=== PATIENT | female | born 1985 | race African-American/Black ===

== ENCOUNTER 2019-01-20 09:25 | Inpatient (IN) | payer OTHER ==
[2019-01-19 12:13] LABS: APPEARANCE,URINE CLEAR; BILIRUBIN,URINE NEGATIVE (NEGATIVE); COLOR,URINE YELLOW; GLUCOSE, URINE NEGATIVE (NEGATIVE); KETONES,URINE NEGATIVE (NEGATIVE); LEUKOCYTE ESTERASE,URINE NEGATIVE (NEGATIVE); NITRITE,URINE NEGATIVE (NEGATIVE); PROTEIN,URINE NEGATIVE (NEGATIVE); URINE SPECIFIC GRAVITY 1.023; UROBILINOGEN,URINE NEGATIVE mg/dL (<2.0)
[2019-01-19 12:28] LABS: HEMATOCRIT 39.3 % (36.0-47.0); HEMOGLOBIN 13.2 g/dL (12.0-15.5); MEAN CORPUSCULAR HEMOGLOBIN 26.7 pg (27.0-33.4); MEAN CORPUSCULAR HGB CONC 33.7 g/dL (32.0-36.0); MEAN CORPUSCULAR VOLUME 79 fl (80-97); PLATELET COUNT 323 10^3/uL (150-450); RED BLOOD COUNT 4.96 10^6/uL (3.72-5.28); RED CELL DISTRIBUTION WIDTH 14.5 % (11.5-14.0); WHITE BLOOD COUNT 6.5 10^3/uL (4.0-10.5)
[2019-01-19 12:57] LABS: ALANINE AMINOTRANSFERASE 19 U/L (9-52); ALBUMIN 4.2 g/dL (3.5-5.0); ALKALINE PHOSPHATASE 45 U/L (38-126); ANION GAP 9 (5-19); ASPARTATE AMINO TRANSFERASE 25 U/L (14-36); BILIRUBIN,DIRECT 0.2 mg/dL (0.0-0.4); BILIRUBIN,TOTAL 0.4 mg/dL (0.2-1.3); BLOOD UREA NITROGEN 11 mg/dL (7-20); CALCIUM 9.9 mg/dL (8.4-10.2); CARBON DIOXIDE 26 mmol/L (22-30); CHLORIDE 104 mmol/L (98-107); GLUCOSE 92 mg/dL (75-110); POTASSIUM 4.2 mmol/L (3.6-5.0); SODIUM 139.3 mmol/L (137-145); TOTAL PROTEIN 7.7 g/dL (6.3-8.2)
[~2019-01-20 09:25] MED LIST: CEFAZOLIN 1 GM/D5W RTU 1 GM/50 ML RTUPB IV ONE; CEFAZOLIN 1 GM/D5W RTU 1 GM/50 ML RTUPB IV PRN; LACTATED RINGERS 1000 ML IV PRN; LIDOCAINE 0.5% INJ-PF (5 MG/ML) 50 ML SDV SUBCUT PRN
[2019-01-20] MEDS ORDERED: BUPIVACAINE HCL 0.25 % INJ/PF (2.5 MG/1 ML) 30 ML VIAL ONE (09:44)
[2019-01-20] MEDS ORDERED: SCOPOLAMINE HYDROBROMIDE 1.5 MG PATCH.TD72 ONE (10:58)
[2019-01-20] MEDS ORDERED: DEXAMETHASONE SOD PHOSPHATE INJ 4 MG/1 ML VIAL ONE ×2 (10:58→11:44)
[2019-01-20] MEDS ORDERED: ONDANSETRON HCL INJ/PF 4 MG/2 ML SDV ONE ×2 (10:58→11:44)
[2019-01-20] MEDS ORDERED: FAMOTIDINE INJ/PF 20 MG/2 ML SDV IV ONE (10:59)
[2019-01-20] MEDS ORDERED: METOCLOPRAMIDE HCL INJ/PF 10 MG/2 ML SDV ONE (11:05)
[2019-01-20] MEDS ORDERED: FENTANYL CITRATE INJ/PF 100 MCG/2 ML AMPUL ONE ×3 (11:44→17:19)
[2019-01-20] MEDS ORDERED: MIDAZOLAM 2 MG/2 ML INJ ONE (11:44)
[2019-01-20] MEDS ORDERED: MORPHINE SULFATE 10 MG/ML INJ ONE (11:44)
[2019-01-20] MEDS ORDERED: PROPOFOL INJ 200 MG/20 ML VIAL IV ONE (11:45)
[2019-01-20] MEDS ORDERED: MORPHINE SULFATE 10 MG/ML INJ IV PRN (12:33)
[2019-01-20] MEDS ORDERED: DIPHENHYDRAMINE HCL 50 MG/ML VIAL IV PRN (12:33)
[2019-01-20] MEDS ORDERED: MEPERIDINE HCL/PF INJ 25 MG/1 ML DISP.SYRIN IV PRN (12:33)
[2019-01-20] MEDS ORDERED: FENTANYL CITRATE INJ/PF 100 MCG/2 ML AMPUL IV PRN (12:33)
[2019-01-20] MEDS ORDERED: PROMETHAZINE HCL INJ 25 MG/1 ML VIAL IV PRN ×2 (12:33)
[2019-01-20] MEDS ORDERED: ACETAMINOPHEN 1,000 MG/100 ML RTUPB IV ONE (12:45)
[2019-01-20] MEDS: FENTANYL CITRATE INJ/PF 100 MCG/2 ML AMPUL IV PRN ×4 (13:50→17:30)
[2019-01-20] MEDS ORDERED: DIPHENHYDRAMINE HCL 50 MG/ML VIAL ONE (14:31)
[2019-01-20] MEDS ORDERED: ROCURONIUM BROMIDE INJ 50 MG/5 ML VIAL IV ONE (14:33)
[2019-01-20] MEDS ORDERED: PHENYLEPHRINE HCL INJ/PF 10 MG/1 ML SDV ONE (14:33)
--- NOTE | 2019-01-20 14:59 | OPERATIVE REPORT E ---
Operative Report NAME: FRANCINE DAVID : 1985 AGE: 33Y DATE OF SURGERY: 01/20/2019 ROOM: PREOPERATIVE DIAGNOSIS: SEVERE DYSMENORRHEA. POSTOPERATIVE DIAGNOSIS: SEVERE DYSMENORRHEA. ENDOMETRIOSIS. OPERATION: DIAGNOSTIC LAPAROSCOPY AND OPEN LAPAROTOMY WITH TOTAL ABDOMINAL HYSTERECTOMY AND BILATERAL SALPINGECTOMY. ESTIMATED BLOOD LOSS: Less than 150 mL. TISSUE REMOVED: Uterus and tubes. SURGEON: Eloina LANDEROS M.D. ANESTHESIA: General. PROCEDURE: The patient was placed in a dorsal lithotomy position, prepped and draped in sterile fashion. Cervix was visualized and grasped with a single-tooth tenaculum. Hulka tenaculum was placed and single-tooth tenaculum was removed. Subumbilical semilunar incision was made and trocar was introduced and placed in the abdomen. The ovaries appeared to be normal. Both tubes were free, but in the cul-de-sac the omentum and bowel were firmly adhered to the posterior aspect of the uterus, obliterating the cul-de-sac. At this point, it was decided that open procedure would be safer. The laparoscope was removed and deflated, and the incision subumbilical was closed using 4-0 Vicryl. The attention was then turned to lower abdomen, where a Pfannenstiel incision was made. The incision extended through the subcutaneous tissue and fascia. The fascia was divided. Rectus muscles bluntly and sharply divided. The peritoneum was entered with sharp dissection. A towel was packed and the O'Get-O'Hayes retractor placed. The uterus was grasped at the uterovarian angle with Romi clamps. The left round was identified and sutured and divided. Free space was entered. The clamp was applied and tissue divided with 2-0 Vicryl. The tube was then dissected away from the mesosalpinx using sharp dissection. *------* on the right. Adhesions in the cul-de-sac were taken down with blunt and sharp dissection and hemostasis was noted. The right round was then identified and sutured. Free space was entered and the uterovarian ligament was clamped and divided. The uterus was then removed by using clamps on each side the uterus, each pedicle being clamped and divided with sutures with 2-0 Vicryl. The bladder flaps were created with sharp dissection. The dissection was continued down to the level of the cervix, which was cross clamped, and the uterus removed. The cuff was then closed with [id number] sutures of 2-0 Vicryl. Hemostasis was noted. The pelvis was irrigated with normal saline and hemostasis was noted. The fascia was then closed with 0 Vicryl and the skin with subcu absorbable frances. The patient's urine remained clear throughout the procedure. She was taken to the recovery room in good condition. DICTATING PHYSICIAN: Eloina LANDEROS M.D. [id number] PHY#: [id number] ID: [id number] JOB#: [id number] ACCT: [id number] cc:Eloina LANDEROS M.D. >
[2019-01-20 16:47] LABS: HEMATOCRIT 27.6 % (36.0-47.0); MEAN CORPUSCULAR HEMOGLOBIN 25.8 pg (27.0-33.4); MEAN CORPUSCULAR HGB CONC 32.3 g/dL (32.0-36.0); MEAN CORPUSCULAR VOLUME 80 fl (80-97); PLATELET COUNT 269 10^3/uL (150-450); RED BLOOD COUNT 3.47 10^6/uL (3.72-5.28); RED CELL DISTRIBUTION WIDTH 14.4 % (11.5-14.0)
[2019-01-20 16:53] LABS: WHITE BLOOD COUNT 20.9 10^3/uL (4.0-10.5)
[2019-01-20 16:54] LABS: HEMOGLOBIN 8.9 g/dL (12.0-15.5)
[2019-01-20 17:11] LABS: ABSOLUTE LYMPHOCYTES# (MANUAL) 0.8 10^3/uL (0.5-4.7); ABSOLUTE MONOCYTES # (MANUAL) 0.6 10^3/uL (0.1-1.4); ABSOLUTE NEUTROPHILS# (MANUAL) 19.4 10^3/uL (1.7-8.2); BASOPHILS % (MANUAL) 0 % (0-2); EOSINOPHILS % (MANUAL) 0 % (0-6); LYMPHOCYTES % (MANUAL) 4 % (13-45); MONOCYTES % (MANUAL) 3 % (3-13); SEGMENTED NEUTROPHILS % (MAN) 93 % (42-78); TOTAL CELLS COUNTED 100
[2019-01-20 17:12] LABS: ANISOCYTOSIS SLIGHT; HYPOCHROMASIA SLIGHT; PLATELET COMMENT ADEQUATE; TOXIC GRANULATION SLIGHT
[2019-01-20] MEDS ORDERED: ACETAMINOPHEN 1,000 MG/100 ML RTUPB IV PRN (20:18)
[2019-01-20] MEDS ORDERED: IBUPROFEN 800 MG TABLET PO ONE (22:15)
[2019-01-20] MEDS: OXYCODONE-ACETAMINOPHEN 5-325 MG TABLET PO PRN (23:02)
[2019-01-20] MEDS ORDERED: MORPHINE SULFATE 10 MG/ML INJ IM PRN (23:17)
--- NOTE | 2019-01-20 23:57 | PDOC CONSULTATION ---
Consultation Consult Date: 01/20/19 Attending physician:: BRADLEY MEDINA Consult reason:: Hypotension History of Present Illness Admission Date/PCP: 01/20/2019 OMARI STEIN PA-C Patient complains of: hypotension History of Present Illness: FRANCINE DAVID is a 33 year old female who developed hypotension during her postoperative phase after a total abdominal hysterectomy with bilateral salpingectomy. Patient was somewhat hypotensive during her postoperative phase and at approximately 1800 her blood pressures fell in the 74-84 range systolic over the low 30s diastolic. She was treated with fluids and was also a blood transfusion. Her hemoglobin was noted to have fallen from greater than 13 preoperatively to less than 9 postoperatively and she was noted to be significantly symptomatic due to her acute intraoperative blood loss. She had nausea and expected postoperative pain but otherwise had no direct complaints related to her hypotension in that she did not feel dizzy, extraordinarily weak, dyspneic, lightheaded nor did she have palpitations. Her surgery was performed to resolve a 5-year history of severe endometriosis. Past Medical History Cardiac Medical History: Denies: Coronary Artery Disease, Myocardial Infarction, Hypertension Pulmonary Medical History: Reports: Asthma Denies: Bronchitis, Chronic Obstructive Pulmonary Disease (COPD), Pneumonia EENT Medical History: Denies: Cataracts, Eyes - No corrective lenses Neurological Medical History: Denies: Hemorrhagic CVA, Ischemic CVA, Seizures Endocrine Medical History: Denies: Diabetes Mellitus Type 1, Diabetes Mellitus Type 2, Hyperthyroidism, Hypothyroidism Renal/ Medical History: Reports: Other - Endometriosis Denies: Chronic Kidney Disease, Nephrolithiasis Malignancy Medical History: Reports: None GI Medical History: Denies: Cirrhosis, Hepatitis Musculoskeltal Medical History: Denies: Arthritis, Gout Skin Medical History: Denies: Eczema, Psoriasis Psychiatric Medical History: Denies: Alcohol Dependency, Substance Abuse, Tobacco Dependency Traumatic Medical History: Denies: None Hematology: Reports: Anemia - = Denies: Bleeding Tendencies Infectious Medical History: Reports: None Past Surgical History Past Surgical History: Reports: None Social History Information Source: Patient Lives with: Spouse/Significant other Smoking Status: Never Smoker Frequency of Alcohol Use: Occasional Hx Recreational Drug Use: No Drugs: None Hx Prescription Drug Abuse: No - Advance Directive Resuscitation Status: Full Code Surrogate healthcare decision maker:: Spouse Family History Family History: DM, Hypertension, Other - Asthma Parental Family History Reviewed: Yes Children Family History Reviewed: No Sibling(s) Family History Reviewed.: Yes Medication/Allergy Home Medications: Cetirizine HCl [Zyrtec] 10 mg PO DAILY 01/06/19 Fluticasone Propionate [Flonase Nasal [place] 50 Mcg/[place] 16 gm] 1 spray NASL DAILY 01/06/19 Montelukast Sodium [Singulair] 10 mg PO DAILY 01/06/19 Allergies/Adverse Reactions: No Known Allergies Allergy (Verified 01/20/19 09:40) Review of Systems Constitutional: ABSENT: chills, fever(s) Eyes: ABSENT: visual disturbances, other - Ocular pain Ears: ABSENT: hearing changes, other - Ear pain Nose, Mouth, and Throat: ABSENT: mouth pain, sore throat Cardiovascular: PRESENT: palpitations. ABSENT: chest pain, edema Respiratory: ABSENT: cough, dyspnea Gastrointestinal: PRESENT: as per HPI, abdominal pain - Postoperative, bloating - Feels like she has abdominal bloating and gas, nausea. ABSENT: constipation, diarrhea, vomiting Genitourinary: ABSENT: dysuria, hematuria Musculoskeletal: ABSENT: back pain, joint swelling, muscle weakness Integumentary: ABSENT: pruritus, rash Neurological: ABSENT: confusion, convulsions, dizziness, focal weakness, memory loss, syncope Psychiatric: ABSENT: anxiety, depression Endocrine: ABSENT: cold intolerance, heat intolerance Hematologic/Lymphatic: ABSENT: easy bleeding, easy bruising Physical Exam Vital Signs: Temp Pulse Resp BP Pulse Ox 98.2 F 91 18 102/42 L 99 01/20/19 22:43 01/20/19 22:43 01/20/19 22:43 01/20/19 22:43 01/20/19 22:43 Intake & Output 01/18/19 01/19/19 01/20/19 23:59 23:59 23:59 Intake Total 5500 Output Total 1600 Balance 3900 Weight 72.57 kg General appearance: PRESENT: no acute distress, cooperative Head exam: PRESENT: atraumatic, normocephalic Eye exam: PRESENT: conjunctiva pale. ABSENT: nystagmus, scleral icterus Ear exam: PRESENT: normal external ear exam. ABSENT: drainage Mouth exam: PRESENT: dry mucosa, neck supple Neck exam: ABSENT: thyromegaly, tracheal deviation Respiratory exam: PRESENT: clear to auscultation joseline, symmetrical, unlabored Cardiovascular exam: PRESENT: RRR. ABSENT: clicks, gallop, rubs Pulses: PRESENT: normal radial pulses, normal dorsalis pedis pul Vascular exam: PRESENT: normal capillary refill. ABSENT: pallor GI/Abdominal exam: PRESENT: diminished bowel sounds, distended - Mild gaseous distention, soft, tenderness - Mild generalized tenderness Rectal exam: PRESENT: deferred Extremities exam: ABSENT: joint swelling, pedal edema Musculoskeletal exam: PRESENT: full ROM, normal inspection Neurological exam: PRESENT: alert, awake, oriented to person, oriented to place, oriented to time, oriented to situation, CN II-XII grossly intact. ABSENT: motor sensory deficit Psychiatric exam: PRESENT: appropriate affect, normal mood Skin exam: PRESENT: dry, intact, warm. ABSENT: jaundice, rash, urticaria Results Laboratory Results: 01/20/19 16:34 01/19/19 10:35 01/19/19 01/20/19 10:35 16:34 WBC 20.9 H D RBC 3.47 L Hgb 8.9 L D Hct 27.6 L MCV 80 MCH 25.8 L MCHC 32.3 RDW 14.4 H Plt Count 269 Seg Neutrophils % Not Reportable Lymphocytes % Not Reportable Monocytes % Not Reportable Eosinophils % Not Reportable Basophils % Not Reportable Absolute Neutrophils Not Reportable Absolute Lymphocytes Not Reportable Absolute Monocytes Not Reportable Absolute Eosinophils Not Reportable Absolute Basophils Not Reportable Blood Type A POSITIVE Antibody Screen NEGATIVE Assessment and Plan - Diagnosis (1) Hypotension due to blood loss Is this a current diagnosis for this admission?: Yes Plan: Patient will be treated with blood transfusion to maintain a hemoglobin of greater than 9.0 in hopes of alleviating her symptomatic postoperative anemia with a hemoglobin of 8.9. She will also be given crystalloid fluid replacement in the form of lactated Ringer's to replace her intravascular volume and support blood pressure. Additional pressure support will be implemented as needed. (2) Acute blood loss as cause of postoperative anemia Is this a current diagnosis for this admission?: Yes Plan: Patient received blood transfusion to maintain hemoglobin greater than 9.0 as previously discussed. (3) Endometriosis Is this a current diagnosis for this admission?: Yes Plan: Patient has undergone a abdominal hysterectomy with bilateral salpingectomy for alleviation of her endometriosis and severe symptoms related to that process. Patient's ongoing postoperative care will be left to her primary surgeon. (4) Postoperative generalized abdominal pain Is this a current diagnosis for this admission?: Yes Plan: Patient's postoperative pain will be managed by her general surgeon although the hospitalist service would be happy to assist in pain management if desired. (5) Asthma Qualifiers: Asthma severity: unspecified severity Asthma persistence: intermittent Asthma complication type: unspecified Qualified Code(s): J45.20 - Mild i ntermittent asthma, uncomplicated Is this a current diagnosis for this admission?: Yes Plan: Patient will be maintained on her current asthma medication soon as she is able to take oral meds. Any asthma exacerbation will gladly be managed by the hospitalist service. - Time Time Spent with patient: 15-24 minutes Anticipated discharge: Home
[2019-01-21] MEDS ORDERED: RINGERS SOLUTION,LACTATED 1,000 ML IV PRN (01:39)
[2019-01-21] MEDS: SIMETHICONE 80 MG TAB.CHEW PO PRN (02:02)
[2019-01-21] MEDS: DEXTROSE 5%-LACTATED RINGERS 1,000 ML IV PRN ×2 (03:54→12:28)
[2019-01-21] MEDS: OXYCODONE-ACETAMINOPHEN 5-325 MG TABLET PO PRN (04:52)
[2019-01-21 07:35] LABS: ABSOLUTE LYMPHOCYTES (AUTO) 0.7 10^3/uL (0.5-4.7); ABSOLUTE MONOCYTES (AUTO) 1.4 10^3/uL (0.1-1.4); ABSOLUTE NEUT (AUTO) 10.5 10^3/uL (1.7-8.2); BASOPHILS % (AUTO) 0.1 % (0-2); HEMATOCRIT 28.6 % (36.0-47.0); HEMOGLOBIN 9.9 g/dL (12.0-15.5); LYMPHOCYTES % (AUTO) 5.7 % (13-45); MEAN CORPUSCULAR HEMOGLOBIN 27.7 pg (27.0-33.4); MEAN CORPUSCULAR HGB CONC 34.4 g/dL (32.0-36.0); MEAN CORPUSCULAR VOLUME 81 fl (80-97); MONOCYTES % (AUTO) 11.1 % (3-13); PLATELET COUNT 216 10^3/uL (150-450); RED BLOOD COUNT 3.56 10^6/uL (3.72-5.28); RED CELL DISTRIBUTION WIDTH 14.6 % (11.5-14.0); SEGMENTED NEUTROPHILS % (AUTO) 83.1 % (42-78); TOTAL CELLS COUNTED % (AUTO) 100 %; WHITE BLOOD COUNT 12.6 10^3/uL (4.0-10.5)
[2019-01-21] MEDS: IBUPROFEN 800 MG TABLET PO SCH ×4 (09:40→23:05)
--- NOTE | 2019-01-21 09:50 | PDOC PROGRESS REPORT ---
Subjective Progress Note for:: 01/21/19 Subjective:: pt alert and tolerating liquids Reason For Visit: N94.6 DYSMENORRHEA, UNSPECIFIED Physical Exam - Physical Exam Vital Signs: Temp Pulse Resp BP Pulse Ox 98.8 F 92 18 110/42 L 99 01/21/19 07:25 01/21/19 07:25 01/21/19 07:25 01/21/19 07:25 01/21/19 07:25 Intake & Output 01/20/19 01/21/19 01/22/19 06:59 06:59 06:59 Intake Total 7400 Output Total 1600 Balance 5800 Weight 72.57 kg General appearance: PRESENT: no acute distress GI/Abdominal exam: PRESENT: soft Result Laboratory Results: 01/21/19 06:40 01/19/19 10:35 01/19/19 01/20/19 01/21/19 10:35 16:34 06:40 WBC 20.9 H D 12.6 H RBC 3.47 L 3.56 L Hgb 8.9 L D 9.9 L Hct 27.6 L 28.6 L MCV 80 81 MCH 25.8 L 27.7 MCHC 32.3 34.4 RDW 14.4 H 14.6 H Plt Count 269 216 Seg Neutrophils % Not Reportable 83.1 H Lymphocytes % Not Reportable 5.7 L Monocytes % Not Reportable 11.1 Eosinophils % Not Reportable 0.0 Basophils % Not Reportable 0.1 Absolute Neutrophils Not Reportable 10.5 H Absolute Lymphocytes Not Reportable 0.7 Absolute Monocytes Not Reportable 1.4 Absolute Eosinophils Not Reportable 0.0 Absolute Basophils Not Reportable 0.0 Blood Type A POSITIVE Antibody Screen NEGATIVE Assessment & Plan - Diagnosis (1) Dysmenorrhea Is this a current diagnosis for this admission?: Yes (2) Acute blood loss as cause of postoperative anemia Is this a current diagnosis for this admission?: Yes (3) Endometriosis Is this a current diagnosis for this admission?: Yes (4) Hypotension due to blood loss Is this a current diagnosis for this admission?: Yes (5) Postoperative generalized abdominal pain Is this a current diagnosis for this admission?: Yes - Plan Summary Plan Summary: advance diet, encourage ambulation, plan to d/c in am if stable
[2019-01-21 13:44] LABS: HEMATOCRIT 27.3 % (36.0-47.0); HEMOGLOBIN 9.3 g/dL (12.0-15.5); MEAN CORPUSCULAR HEMOGLOBIN 27.5 pg (27.0-33.4); MEAN CORPUSCULAR HGB CONC 34.2 g/dL (32.0-36.0); MEAN CORPUSCULAR VOLUME 81 fl (80-97); PLATELET COUNT 218 10^3/uL (150-450); RED BLOOD COUNT 3.39 10^6/uL (3.72-5.28); RED CELL DISTRIBUTION WIDTH 15.1 % (11.5-14.0); WHITE BLOOD COUNT 12.4 10^3/uL (4.0-10.5)
--- NOTE | 2019-01-21 16:47 | PDOC PROGRESS REPORT ---
Subjective Progress Note for:: 01/21/19 Subjective:: 33 y.o. F presented to [facility] for total hysterectomy and salpingectomy (ovaries are still intact). Procedure was performed due to severe endometriosis. Following the procedure, the patient became hypotensive, (MAP 40s). Hgb dropped from 13.2--> 8.9. The patient was transfused 2 units PRBCs, her Hgb increased to 9.9. Hospitalist was consulted for hypotension and anemia. Upon assessment, the patient is resting comfortably in bed on room air. She states she still feels tired and weak but her symptoms have improved since last night. Patient denies dizziness, palpitations, chest pain or shortness of breath. LCTA. (+) Systolic murmur. The patient states she does not have a history of a heart murmur. Endorses recent syncopal episodes within the last year. Palpable pulses in the upper and lower extremities. No evidence of peripheral edema. Patient's physical exam findings were discussed with cardiology, Dr. Leary. Will perform echocardiogram today to assess for valvular disease. Reason For Visit: N94.6 DYSMENORRHEA, UNSPECIFIED Physical Exam Vital Signs: Temp Pulse Resp BP Pulse Ox 98.3 F 86 18 117/57 L 99 01/21/19 11:35 01/21/19 11:35 01/21/19 11:35 01/21/19 11:35 01/21/19 11:35 Intake & Output 01/20/19 01/21/19 01/22/19 06:59 06:59 06:59 Intake Total 7400 1000 Output Total 1600 Balance 5800 1000 Weight 72.57 kg General appearance: PRESENT: no acute distress, well-developed, well-nourished Head exam: PRESENT: atraumatic, normocephalic Eye exam: PRESENT: conjunctiva pink, EOMI, PERRLA. ABSENT: scleral icterus Ear exam: PRESENT: normal external ear exam Mouth exam: PRESENT: moist, tongue midline Neck exam: ABSENT: carotid bruit, JVD, lymphadenopathy, thyromegaly Respiratory exam: PRESENT: clear to auscultation joseline. ABSENT: rales, rhonchi, tachypnea, wheezes Cardiovascular exam: PRESENT: RRR, systolic murmur. ABSENT: diastolic murmur, rubs Pulses: PRESENT: normal radial pulses, normal dorsalis pedis pul Vascular exam: PRESENT: normal capillary refill GI/Abdominal exam: PRESENT: normal bowel sounds, soft. ABSENT: distended, guarding, mass, organolmegaly, rebound, tenderness Rectal exam: PRESENT: deferred Extremities exam: PRESENT: full ROM. ABSENT: calf tenderness, clubbing, pedal edema Musculoskeletal exam: PRESENT: ambulatory, full ROM Neurological exam: PRESENT: alert, awake, oriented to person, oriented to place, oriented to time, oriented to situation Psychiatric exam: PRESENT: appropriate affect Skin exam: PRESENT: dry, intact, warm. ABSENT: cyanosis, rash Results Laboratory Results: 01/21/19 13:19 01/19/19 10:35 01/19/19 01/20/19 01/21/19 10:35 16:34 06:40 WBC 20.9 H D 12.6 H RBC 3.47 L 3.56 L Hgb 8.9 L D 9.9 L Hct 27.6 L 28.6 L MCV 80 81 MCH 25.8 L 27.7 MCHC 32.3 34.4 RDW 14.4 H 14.6 H Plt Count 269 216 Seg Neutrophils % Not Reportable 83.1 H Lymphocytes % Not Reportable 5.7 L Monocytes % Not Reportable 11.1 Eosinophils % Not Reportable 0.0 Basophils % Not Reportable 0.1 Absolute Neutrophils Not Reportable 10.5 H Absolute Lymphocytes Not Reportable 0.7 Absolute Monocytes Not Reportable 1.4 Absolute Eosinophils Not Reportable 0.0 Absolute Basophils Not Reportable 0.0 Blood Type A POSITIVE Antibody Screen NEGATIVE 01/21/19 13:19 WBC 12.4 H RBC 3.39 L Hgb 9.3 L Hct 27.3 L MCV 81 MCH 27.5 MCHC 34.2 RDW 15.1 H Plt Count 218 Seg Neutrophils % Lymphocytes % Monocytes % Eosinophils % Basophils % Absolute Neutrophils Absolute Lymphocytes Absolute Monocytes Absolute Eosinophils Absolute Basophils Blood Type Antibody Screen Status: Imported from PACS Assessment and Plan - Diagnosis (1) Postoperative hypotension Is this a current diagnosis for this admission?: Yes Plan: Blood loss VS drug induced EBL was only 150mL according to operative report, this should not cause profound HYPOtension Possibly drug induced by analgesia BP improved to normal range with IVF resuscitation Hgb noted to drop 13-->8 Given 2U PRBC for acute anemia, suspected blood loss (2) Postoperative generalized abdominal pain Is this a current diagnosis for this admission?: Yes Plan: S/p total hysterectomy and bilateral salpingectomy. Complains of surgical site pain PRN ibuprofen, motrin, Percocet (3) Murmur Is this a current diagnosis for this admission?: Yes Plan: Systolic murmur auscultated during assessment Discussed with Dr. Peralta Patient reports frequent syncopal episodes within the last 2 years Could be secondary to anemia but given her constellation of symptoms would like to get ECHOcardiogram (4) Endometriosis Is this a current diagnosis for this admission?: Yes Plan: S/p abdominal hysterectomy with bilateral salpingectomy for alleviation of her endometriosis and severe symptoms - Time Time Spent with patient: 15-24 minutes Medications reviewed and adjusted accordingly: Yes Anticipated discharge: Home - Inpatient Certification Based on my medical assessment, after consideration of the patient's comorbidities, presenting symptoms, or acuity I expect that the services needed warrant INPATIENT care.: Yes I certify that my determination is in accordance with my understanding of Medicare's requirements for reasonable and necessary INPATIENT services [42 CFR 412.3e].: Yes Medical Necessity: Need For Continuous Telemetry Monitoring, Risk of Complication if Not Cared For in Hospital
--- NOTE | 2019-01-21 20:00 | XCELERA REPORT ---
[address] [address] Transthoracic Echocardiogram Report Name: FRANCINE DAVID Age: 33 yrs Gender: Female : 1985 Patient Status: Outpatient Patient Location: [facility]A Study Date: 01/21/2019 02:32 PM Height: 63 in Weight: 159 lb BSA: 1.8 m2 Procedure: A two-dimensional transthoracic echocardiogram with color flow Doppler was performed. Study Quality: Fair. Reason For Study: new murmur History: murmur. Ordering Physician: EBONI ALVA Performed By: Cande Lima Interpretation Summary The left ventricle is normal in size. There is normal left ventricular wall thickness. The left ventricular ejection fraction is within normal limits. LV EF is > than 65% Doppler measurements suggest normal left ventricular diastolic function The left ventricular wall motion is normal. There is no thrombus. No ASD , VSD ,or PFO seen. The right ventricle is normal in size and function. The right atrium is normal. The left atrial size is normal. There is no evidence of mitral valve prolapse. There is no vegetation seen on the mitral valve. There is no mitral valve stenosis. There is no mitral regurgitation noted. The aortic valve is trileaflet. The aortic valve is normal in structure and functions normally The aortic valve opens well. There is no aortic valvular vegetation. There is no aortic valve stenosis There is no LVOT obstruction. No aortic regurgitation is present. There is no tricuspid stenosis. There is a trace amount of tricuspid regurgitation No significant pulmonary hypertension.RVSP is 26 tp 32 mm of Hg , with RA mean of 5 to 10. There is no pulmonic valvular stenosis. There is a trace amount of pulmonic regurgitation The aortic root is normal size. The inferior vena cava appeared normal and decreased > 50% with respiration (RAP 5-10 mmHg) There is no pericardial effusion. MMode/2D Measurements & Calculations RVDd: 1.9 cm LVIDd: 4.0 cm FS: 37.3 % Ao root diam: 2.5 cm IVSd: 0.85 cm LVIDs: 2.5 cm EDV(Teich): Ao root area: LVPWd: 0.83 cm 70.6 ml 4.8 cm2 ESV(Teich): LA dimension: 3.0 cm 22.7 ml EF(Teich): 67.8 % LVLd ap4: 6.2 cm SV(MOD-sp4): EDV(MOD-sp4): 29.0 ml 40.0 ml LVLs ap4: 4.2 cm ESV(MOD-sp4): 11.0 ml EF(MOD-sp4): 72.5 % Doppler Measurements & Calculations MV E max amparo: MV P1/2t max amparo: Ao V2 max: LV V1 max P.2 cm/sec 148.0 cm/sec 150.7 cm/sec 6.9 mmHg MV A max amparo: MV P1/2t: 49.4 msec Ao max PG: LV V1 max: 74.0 cm/sec MVA(P1/2t): 4.5 cm2 9.1 mmHg 131.4 cm/sec MV E/A: 1.9 MV dec slope: 877.6 cm/sec2 MV dec time: 0.18 sec PA V2 max: PI end-d amparo: TR max amparo: MV P1/2t-pr_phl: 108.6 cm/sec 95.0 cm/sec 232.1 cm/sec 49.4 msec PA max P.7 mmHg TR max P.6 mmHg Left Ventricle The left ventricle is normal in size. There is normal left ventricular wall thickness. The left ventricular ejection fraction is within normal limits. LV EF is > than 65%. Doppler measurements suggest normal left ventricular diastolic function. The left ventricular wall motion is normal. There is no thrombus. No ASD , VSD ,or PFO seen. Right Ventricle The right ventricle is normal in size and function. Atria The right atrium is normal. The left atrial size is normal. Mitral Valve There is no evidence of mitral valve prolapse. There is no vegetation seen on the mitral valve. There is no mitral valve stenosis. There is no mitral regurgitation noted. Aortic Valve The aortic valve is trileaflet. The aortic valve is normal in structure and functions normally. The aortic valve opens well. There is no aortic valvular vegetation. There is no aortic valve stenosis. There is no LVOT obstruction. No aortic regurgitation is present. Tricuspid Valve There is no tricuspid stenosis. There is a trace amount of tricuspid regurgitation. No significant pulmonary hypertension.RVSP is 26 tp 32 mm of Hg , with RA mean of 5 to 10. Pulmonic Valve There is no pulmonic valvular stenosis. There is a trace amount of pulmonic regurgitation. Great Vessels The aortic root is normal size. The inferior vena cava appeared normal and decreased > 50% with respiration (RAP 5-10 mmHg). Effusions There is no pericardial effusion. : EBONI ALVA > Natalia Leary
[2019-01-22] MEDS: IBUPROFEN 800 MG TABLET PO SCH ×3 (06:14→23:00)
[2019-01-22] MEDS: SIMETHICONE 80 MG TAB.CHEW PO PRN ×2 (07:59→15:18)
--- NOTE | 2019-01-22 11:41 | PDOC PROGRESS REPORT ---
Subjective Progress Note for:: 01/22/19 Subjective:: Patient admits to no passage of flatus since surgery 2 days earlier. Pain is well controlled. Pt denies any fevers or chills, SOB or CP. Patient has ambulated in the griffin today, still awaiting flatus. Pt states the area under the umbilicus is swelling and more tender. Reason For Visit: N94.6 DYSMENORRHEA, UNSPECIFIED Physical Exam - Physical Exam Vital Signs: Temp Pulse Resp BP Pulse Ox 98.1 F 101 H 16 106/54 L 98 01/22/19 07:18 01/22/19 07:18 01/22/19 07:18 01/22/19 07:18 01/22/19 05:48 Intake & Output 01/21/19 01/22/19 01/23/19 06:59 06:59 06:59 Intake Total 7400 1500 Output Total 1600 Balance 5800 1500 Weight 72.57 kg 72 kg General appearance: PRESENT: no acute distress, cooperative Head exam: PRESENT: atraumatic, normocephalic Eye exam: PRESENT: EOMI Neck exam: PRESENT: full ROM GI/Abdominal exam: PRESENT: normal bowel sounds, soft, other - appropriately tender second to laparotomy incision; 3x5 cm induration and mild erythema below the umbilicus; umbilical incision with purulent drainage Rectal exam: PRESENT: deferred Neurological exam: PRESENT: alert, awake, oriented to person Psychiatric exam: PRESENT: appropriate affect, normal mood Result Laboratory Results: 01/21/19 13:19 01/19/19 10:35 01/21/19 13:19 WBC 12.4 H RBC 3.39 L Hgb 9.3 L Hct 27.3 L MCV 81 MCH 27.5 MCHC 34.2 RDW 15.1 H Plt Count 218 Assessment & Plan - Diagnosis (1) Acute blood loss as cause of postoperative anemia Is this a current diagnosis for this admission?: Yes (2) Postoperative generalized abdominal pain Is this a current diagnosis for this admission?: Yes (3) Skin infection Is this a current diagnosis for this admission?: Yes - Plan Summary Plan Summary: Will start oral keflex for developing skin infection from umbilical port site Increase ambulation for to help with flatus Anticipate discharge in am
[2019-01-22] MEDS ORDERED: BISACODYL 10 MG SUPP.RECT PR PRN (17:15)
[2019-01-22] MEDS: CEPHALEXIN 500 MG CAPSULE PO SCH (17:56)
[2019-01-22] MEDS ORDERED: SENNOSIDES/DOCUSATE 8.6-50 MG 1 EACH TABLET PO SCH (18:00)
--- NOTE | 2019-01-22 19:27 | RADIOLOGY REPORT (SQ) ---
EXAM DESCRIPTION: KUB/ABDOMEN (SINGLE VIEW) COMPLETED DATE/TIME: 01/22/2019 7:12 pm REASON FOR STUDY: abdominal pain N94.6 DYSMENORRHEA, UNSPECIFIED COMPARISON: None. NUMBER OF VIEWS: One view. TECHNIQUE: Supine radiographic image of the abdomen acquired. LIMITATIONS: None. FINDINGS: BOWEL GAS PATTERN: Normal bowel gas pattern. No dilated loops. CALCIFICATIONS: No suspicious calcifications. SOFT TISSUES: No gross mass or suggestion of organomegaly. HARDWARE: None in the abdomen. BONES: No acute fracture. No worrisome bone lesions. OTHER: No other significant finding. IMPRESSION: NO RADIOGRAPHIC EVIDENCE FOR ACUTE ABDOMINAL DISEASE. TECHNICAL DOCUMENTATION: JOB ID: [id number]- All Rights Reserved Reading location - IP/workstation name: [email or web address]
--- NOTE | 2019-01-22 22:12 | PDOC PROGRESS REPORT ---
Subjective Progress Note for:: 01/22/19 Subjective:: 33 y.o. F presented to [facility] for total hysterectomy and salpingectomy (ovaries are still intact). Procedure was performed due to severe endometriosis. Following the procedure, the patient became hypotensive, (MAP 40s). Hgb dropped from 13.2--> 8.9. The patient was transfused 2 units PRBCs, her Hgb increased to 9.9. Hospitalist was consulted for hypotension and anemia. Upon assessment, the patient is resting comfortably in bed on room air. The patient endorses abdominal distention and pain/parasthesia at the surgical site. She states she has not passed gas despite stool softeners and prune juice. Patient denies dizziness, palpitations, chest pain or shortness of breath. LCTA.(+) S1S2. Plan for KUB to evaluate for constipation. Dulcolax suppository & BID senna. Reason For Visit: N94.6 DYSMENORRHEA, UNSPECIFIED Physical Exam Vital Signs: Temp Pulse Resp BP Pulse Ox 98.3 F 99 18 123/46 L 100 01/22/19 20:57 01/22/19 20:57 01/22/19 20:57 01/22/19 20:57 01/22/19 20:57 Intake & Output 01/21/19 01/22/19 01/23/19 06:59 06:59 06:59 Intake Total 7400 1500 Output Total 1600 Balance 5800 1500 Weight 72.57 kg 72 kg General appearance: PRESENT: no acute distress, well-developed, well-nourished Head exam: PRESENT: atraumatic, normocephalic Eye exam: PRESENT: conjunctiva pink, EOMI, PERRLA. ABSENT: scleral icterus Ear exam: PRESENT: normal external ear exam Mouth exam: PRESENT: moist, tongue midline Neck exam: ABSENT: carotid bruit, JVD, lymphadenopathy, thyromegaly Respiratory exam: PRESENT: clear to auscultation joseline. ABSENT: rales, rhonchi, wheezes Cardiovascular exam: PRESENT: RRR. ABSENT: diastolic murmur, rubs, systolic murmur Pulses: PRESENT: normal radial pulses, normal dorsalis pedis pul Vascular exam: PRESENT: normal capillary refill GI/Abdominal exam: PRESENT: distended - mild, normal bowel sounds, soft, tenderness. ABSENT: guarding, mass, organolmegaly, rebound Rectal exam: PRESENT: deferred Extremities exam: PRESENT: full ROM. ABSENT: calf tenderness, clubbing, pedal edema Neurological exam: PRESENT: alert, awake, oriented to person, oriented to place, oriented to time, oriented to situation Psychiatric exam: PRESENT: appropriate affect, normal mood Skin exam: PRESENT: dry, intact, warm. ABSENT: cyanosis, rash Results Laboratory Results: 01/21/19 13:19 01/19/19 10:35 Impressions: KUB X-Ray 01/22/19 00:00 IMPRESSION: NO RADIOGRAPHIC EVIDENCE FOR ACUTE ABDOMINAL DISEASE. Status: Imported from PACS Assessment and Plan - Diagnosis (1) Postoperative hypotension Is this a current diagnosis for this admission?: Yes Plan: Blood loss VS drug induced EBL was only 150mL according to operative report, this should not cause profound HYPOtension Possibly drug induced by analgesia BP improved to normal range with IVF resuscitation Hgb noted to drop 13-->8 Given 2U PRBC for acute anemia, suspected blood loss (2) Postoperative generalized abdominal pain Is this a current diagnosis for this admission?: Yes Plan: S/p total hysterectomy and bilateral salpingectomy. Complains of surgical site pain, site appears healthy/C/D/I, no signs of infection Patient reports she is not passing flatus upper abdominal distention and patient reports 'gas pains' PO simethicone PRN ibuprofen, motrin, Percocet Plan for KUB to evaluate for constipation (3) Murmur Is this a current diagnosis for this admission?: Yes Plan: Systolic murmur auscultated during assessment Discussed with Dr. Peralta Could be secondary to anemia ECHOcardiogram done, results are normal (4) Endometriosis Is this a current diagnosis for this admission?: Yes Plan: S/p abdominal hysterectomy with bilateral salpingectomy for alleviation of her endometriosis and severe symptoms - Time Time Spent with patient: 15-24 minutes Medications reviewed and adjusted accordingly: Yes Anticipated discharge: Home Within: within 48 hours - Inpatient Certification Based on my medical assessment, after consideration of the patient's comorbidities, presenting symptoms, or acuity I expect that the services needed warrant INPATIENT care.: Yes I certify that my determination is in accordance with my understanding of Medicare's requirements for reasonable and necessary INPATIENT services [42 CFR 412.3e].: Yes Medical Necessity: Risk of Complication if Not Cared For in Hospital
[2019-01-23] MEDS: IBUPROFEN 800 MG TABLET PO SCH (05:54)
--- NOTE | 2019-01-23 09:51 | PDOC PROGRESS REPORT ---
Subjective Progress Note for:: 01/23/19 Subjective:: 33 y.o. F presented to [facility] for total hysterectomy and salpingectomy (ovaries are still intact). Procedure was performed due to severe endometriosis. Following the procedure, the patient became hypotensive, (MAP 40s). Hgb dropped from 13.2--> 8.9. The patient was transfused 2 units PRBCs, her Hgb increased to 9.9. Hospitalist was consulted for hypotension and anemia. Upon assessment, the patient is resting comfortably in bed on room air. KUB from last night was normal. The patient was treated with suppositories and twice daily senna. Nursing staff reported the patient had multiple bowel movements overnight and this morning. Reason For Visit: N94.6 DYSMENORRHEA, UNSPECIFIED Physical Exam Vital Signs: Temp Pulse Resp BP Pulse Ox 98.6 F 102 H 18 122/57 L 100 01/23/19 08:07 01/23/19 08:07 01/23/19 08:07 01/23/19 08:07 01/23/19 08:07 Intake & Output 01/22/19 01/23/19 01/24/19 06:59 06:59 06:59 Intake Total 1500 600 Balance 1500 600 Weight 72 kg General appearance: PRESENT: no acute distress, well-developed, well-nourished Head exam: PRESENT: atraumatic, normocephalic Eye exam: PRESENT: conjunctiva pink, EOMI, PERRLA. ABSENT: scleral icterus Ear exam: PRESENT: normal external ear exam Mouth exam: PRESENT: moist, tongue midline Neck exam: ABSENT: carotid bruit, JVD, lymphadenopathy, thyromegaly Respiratory exam: PRESENT: clear to auscultation joseline. ABSENT: rales, rhonchi, wheezes Cardiovascular exam: PRESENT: RRR. ABSENT: diastolic murmur, rubs, systolic murmur Pulses: PRESENT: normal dorsalis pedis pul Vascular exam: PRESENT: normal capillary refill GI/Abdominal exam: PRESENT: normal bowel sounds, soft, other - SMALL MARC UMBILICAL BRUISING. SURGICAL INCISION C/D/I. ABSENT: distended, guarding, mass, organolmegaly, rebound, tenderness Rectal exam: PRESENT: deferred Extremities exam: PRESENT: full ROM. ABSENT: calf tenderness, clubbing, pedal edema Neurological exam: PRESENT: alert, awake, oriented to person, oriented to place, oriented to time, oriented to situation Psychiatric exam: PRESENT: appropriate affect, normal mood. ABSENT: homicidal ideation, suicidal ideation Skin exam: PRESENT: dry, intact, warm. ABSENT: cyanosis, rash Results Laboratory Results: 01/21/19 13:19 01/19/19 10:35 Impressions: KUB X-Ray 01/22/19 00:00 IMPRESSION: NO RADIOGRAPHIC EVIDENCE FOR ACUTE ABDOMINAL DISEASE. Status: Imported from PACS Assessment and Plan - Diagnosis (1) Postoperative hypotension Is this a current diagnosis for this admission?: Yes Plan: Blood loss VS drug induced EBL was only 150mL according to operative report, this should not cause profound HYPOtension Possibly drug induced by analgesia BP improved to normal range with IVF resuscitation Hgb noted to drop 13-->8 Given 2U PRBC for acute anemia, suspected blood loss Blood pressure has been stabilized for 48hrs (2) Postoperative generalized abdominal pain Is this a current diagnosis for this admission?: Yes Plan: S/p total hysterectomy and bilateral salpingectomy. Complains of surgical site pain, site appears healthy/C/D/I, no signs of infection Patient reports she is not passing flatus upper abdominal distention and patient reports 'gas pains' PO simethicone PRN ibuprofen, motrin, Percocet KUB normal Started on BID senna and dulcolax suppository (3) Murmur Is this a current diagnosis for this admission?: Yes Plan: Systolic murmur auscultated during assessment Discussed with Dr. Peralta Could be secondary to anemia ECHOcardiogram done, results are normal (4) Endometriosis Is this a current diagnosis for this admission?: Yes Plan: S/p abdominal hysterectomy with bilateral salpingectomy for alleviation of her endometriosis and severe symptoms - Time Time Spent with patient: 15-24 minutes Medications reviewed and adjusted accordingly: Yes Anticipated discharge: Home Within: within 24 hours - Inpatient Certification Based on my medical assessment, after consideration of the patient's comorbidities, presenting symptoms, or acuity I expect that the services needed warrant INPATIENT care.: No I certify that my determination is in accordance with my understanding of Medicare's requirements for reasonable and necessary INPATIENT services [42 CFR 412.3e].: No Post Hospital Care: D/C or Transfer Summary - PATIENT IS MEDICALLY STABLE FOR DISCHARGE
[2019-01-23] MEDS: CEPHALEXIN 500 MG CAPSULE PO SCH (10:10)
--- NOTE | 2019-01-23 10:23 | Discharge Summary ---
Discharge Summary (SDC) - Discharge Final Diagnosis: endometriosis,dysmenorrhea,acute blood loss Date of Surgery: 01/20/19 Discharge Date: 01/23/19 Condition: Good Referrals: OMARI STEIN PA-C [Primary Care Provider] - JUSTIN LANDEROS MD [ACTIVE STAFF] - Respiratory Treatments at Home: Deep Breathing/Coughing Discharge Activity: Activity As Tolerated, No Driving, Energy Conservation, No Lifting Over 10 Pounds, No Lifting/Push/Pulling, Pelvic Rest, Slowly Increase Activity, No tub bath, Walk Frequently Home Care Assistance: None Needed Report the Following to Your Physician Immediately: Shortness of Breath, Fever over 101 Degrees, Unusual Bleeding, Redness, Swelling, Warmth, Increased Soreness, Drainage-Foul Smelling, Wheezing, Seizure, IV Site Infection Signs, Urinary Infection Signs
[2019-01-23 10:24] VITALS: BP 110/68
== END 2019-01-23 10:42 | disposition home or self-care (01) | DRG 742 ==
LOC: OROUT 09:25 → 2S 09:25 → EDSTATUS 12:00 → 2S 19:00 → OROUT 19:00 → 2S 01-23 10:42
PROVIDERS: ADMIT Obstetrics & Gynecology Gynecology; ATTEND Obstetrics & Gynecology Gynecology
PROC: 0UT70ZZ Resection of Bilateral Fallopian Tubes, Open Approach (ICD-10-PCS; 2019-01-20)
PROC: 30233N1 Transfusion of Nonautologous Red Blood Cells into Peripheral Vein, Percutaneous Approach (ICD-10-PCS; 2019-01-20)
PROC: 0UT90ZZ Resection of Uterus, Open Approach (ICD-10-PCS; principal; 2019-01-20 12:00)
DX: N80.0 Endometriosis of uterus (principal); D62 Acute posthemorrhagic anemia; N94.6 Dysmenorrhea, unspecified; I95.89 Other hypotension; R01.1 Cardiac murmur, unspecified; J45.20 Mild intermittent asthma, uncomplicated; Z53.31 Laparoscopic surgical procedure converted to open procedure
CPT/HCPCS: 36415; 36430; 80053; 81001; 81025; 840; 85025; 85027; 86850; 86900; 86901; 86920; 88307; J0131; J0690; J1100; J1200; J2250; J2270; J2370; J2405; J2704; J2765; J3010; J3490; J7120; P9016; S0028